=== PATIENT | female | born 1965 ===

== ENCOUNTER 2020-12-18 08:15 | Inpatient (IN) | payer OTHER ==
[~2020-12-18] VITALS: Ht 154.9 cm; Wt 101.6 kg
[2020-12-18] MEDS ORDERED: LEVOTHYROXINE25 MCG PO (10:01)
[2020-12-18] MEDS ORDERED: OMEGA-31000 MG PO (10:02)
[2020-12-18] MEDS ORDERED: SULINDAC200 MG PO (10:02)
[2020-12-18] MEDS ORDERED: MAGNESIUM200 MG PO (10:02)
[2020-12-18] MEDS ORDERED: SELENIUM200 MC2 PO (10:02)
[2020-12-18] MEDS ORDERED: VITAMIN C100 MG PO (10:03)
[2020-12-20] MEDS ORDERED: LISINOPRIL5 MG (07:56)
[2020-12-20] MEDS ORDERED: ATORVASTATIN CA20 MG (07:56)
[2020-12-20] MEDS ORDERED: OMEGA 3 1,0001 EACH (07:56)
== END 2020-12-21 14:06 | disposition home or self-care (01) | DRG 743 ==
LOC: SURH 12-19 08:15 → OB/GYN 12-19 08:57 → O/R 12-19 08:57 → SURH 12-19 10:15 → OB/GYN 12-20 16:30
PROVIDERS: ADMIT Specialist; ATTEND Specialist
PROC: 0UT20ZZ Resection of Bilateral Ovaries, Open Approach (ICD-10-PCS; 2020-12-19)
PROC: 0UT70ZZ Resection of Bilateral Fallopian Tubes, Open Approach (ICD-10-PCS; 2020-12-19)
PROC: 07BC0ZZ Excision of Pelvis Lymphatic, Open Approach (ICD-10-PCS; 2020-12-19)
PROC: 0UT90ZZ Resection of Uterus, Open Approach (ICD-10-PCS; principal; 2020-12-19 10:15)
DX: N85.02 Endometrial intraepithelial neoplasia [EIN] (principal); D25.1 Intramural leiomyoma of uterus; N72 Inflammatory disease of cervix uteri; R59.9 Enlarged lymph nodes, unspecified; N83.8 Other noninflammatory disorders of ovary, fallopian tube and broad ligament; N94.89 Other specified conditions associated with female genital organs and menstrual cycle; N83.292 Other ovarian cyst, left side; N83.291 Other ovarian cyst, right side; E03.9 Hypothyroidism, unspecified